=== PATIENT | female | born 1970 ===

== ENCOUNTER 2018-01-18 12:47 | Emergency (ER) | payer BC ==
[~2018-01-18] VITALS: Ht 154.9 cm; Wt 72.6 kg
[2018-01-18] MEDS ORDERED: HYDROCHLOROTH12.5 M1 (12:53)
== END 2018-01-18 17:08 | disposition home or self-care (01) ==
LOC: ER 12:47
DX: N39.0 Urinary tract infection, site not specified (principal); M54.5 Low back pain